=== PATIENT | male | born 1965 | race Two or more races ===

== ENCOUNTER 2016-12-26 23:13 | Inpatient (IN) | payer MEDICARE ==
[~2016-12-26] VITALS: Ht 165.1 cm; Wt 70.3 kg
[2016-12-27 00:08] LABS: BILIRUBIN,URINE NEGATIVE (NEG); GLUCOSE,URINE >=1000 mg/dL (NEG); NITRITE,URINE POSITIVE (NEG); PROTEIN,URINE NEGATIVE (NEG-TRACE); UROBILINOGEN,URINE 0.2 mg/dL (0.2 mg/dL)
[2016-12-27 00:14] LABS: BACTERIA,URINE MANY /HPF (0-FEW); RBC,URINE TNTC /HPF (0-2); WBC,URINE TNTC /HPF (0-4)
[2016-12-27] MEDS ORDERED: IV NORMAL SALINE 1000ML BAG 1,000 ML IV SCH (02:00)
[2016-12-27] MEDS ORDERED: IV NORMAL SALINE 1000ML BAG 1,000 ML IV ONE (02:00)
[2016-12-27 02:16] LABS: BASO # 0.1 x10^3/uL (0.0-0.2); BASO % 1 % (0-3); EOS % 0 % (0-3); HEMATOCRIT 44.9 % (39.0-53.0); LYMPH # 1.3 x10^3/uL (1.0-4.8); LYMPH % 8 % (24-48); MEAN CORPUSCULAR HEMOGLOBIN 28 pg (25-35); MEAN CORPUSCULAR HGB CONC 33 g/dL (31-37); MEAN CORPUSCULAR VOLUME 85 fL (79-100); MONO % 4 % (0-9); NEUT % 87 % (31-73); PLATELET COUNT 346 x10^3/uL (140-400); RED BLOOD COUNT 5.29 x10^6/uL (4.30-5.70); RED CELL DISTRIBUTION WIDTH 13.2 % (11.5-14.5); WHITE BLOOD COUNT 16.1 x10^3/uL (4.0-11.0)
[2016-12-27 02:24] LABS: CALCIUM 8.9 mg/dL (8.5-10.1); CREATININE 0.9 mg/dL (0.7-1.3); GFR 88.3
[2016-12-27] MEDS ORDERED: IV NORMAL SALINE 1000ML BAG 500 ML IV ONE (02:30)
[2016-12-27] MEDS ORDERED: ONDANSETRON PF 4 MG/2 ML VIAL. IV PRN (02:30)
[2016-12-27 02:49] LABS: PLT ESTIMATE ADEQUATE (ADEQUATE)
[2016-12-27 03:30] VITALS: BP 156/89
[2016-12-27] MEDS: MORPHINE SULFATE 4 MG/ML DISP.SYRIN. IV PRN ×2 (03:48→17:13)
--- NOTE | 2016-12-27 04:11 | PHYS DOC ---
Past Medical History Past Medical History: Bipolar, Diabetes-Type II Past Surgical History: No Surgical History Additional Information: 1.5 PPD Alcohol Use: Heavy Drug Use: None Adult General Chief Complaint Chief Complaint: PAIN ON URINATION HPI HPI Patient is a 51 year old [f__sex] who presents with [] Review of Systems Review of Systems Constitutional: Denies fever or chills [] Eyes: Denies change in visual acuity, redness, or eye pain [] HENT: Denies nasal congestion or sore throat [] Respiratory: Denies cough or shortness of breath [] Cardiovascular: No additional information not addressed in HPI [] GI: Denies abdominal pain, nausea, vomiting, bloody stools or diarrhea [] : Denies dysuria or hematuria [] Musculoskeletal: Denies back pain or joint pain [] Integument: Denies rash or skin lesions [] Neurologic: Denies headache, focal weakness or sensory changes [] Endocrine: Denies polyuria or polydipsia [] All other systems were reviewed and found to be within normal limits, except as documented in this note. Current Medications Current Medications Current Medications Medications (Trade) Dose Ordered Sig/Heidi Start Time Stop Time Status Last Admin Dose Admin Ceftriaxone Sodium 50 ml @ 100 mls/hr 1X ONCE 12/27/16 02:15 12/27/16 02:45 DC 12/27/16 02:24 100 MLS/HR Sodium Chloride 1,000 ml @ 999 mls/hr 1X ONCE 12/27/16 02:00 12/27/16 03:00 DC 12/27/16 03:43 999 MLS/HR Allergies Allergies Allergies Coded Allergies Type Severity Reaction Last Updated Verified No Known Drug Allergies 12/26/16 No Physical Exam Physical Exam Constitutional: Well developed, well nourished, no acute distress, non-toxic appearance. [] HENT: Normocephalic, atraumatic, bilateral external ears normal, oropharynx moist, no oral exudates, nose normal. [] Eyes: PERRLA, EOMI, conjunctiva normal, no discharge. [] Neck: Normal range of motion, no tenderness, supple, no stridor. [] Cardiovascular:Heart rate regular rhythm, no murmur [] Lungs & Thorax: Bilateral breath sounds clear to auscultation [] Abdomen: Bowel sounds normal, soft, no tenderness, no masses, no pulsatile masses. [] Skin: Warm, dry, no erythema, no rash. [] Back: No tenderness, no CVA tenderness. [] Extremities: No tenderness, no cyanosis, no clubbing, ROM intact, no edema. [] Neurologic: Alert and oriented X 3, normal motor function, normal sensory function, no focal deficits noted. [] Psychologic: Affect normal, judgement normal, mood normal. [] Current Patient Data Vital Signs Vital Signs Date Time Temp Pulse Resp B/P (MAP) Pulse Ox O2 Delivery O2 Flow Rate FiO2 12/27/16 02:06 95 18 114/73 (87) 95 Room Air 12/26/16 23:42 98.3 98.3 Lab Values Laboratory Tests Test 12/26/16 23:37 12/27/16 02:04 Urine Collection Type Unknown Urine Color Yellow Urine Clarity Cloudy Urine pH 6.0 Urine Specific [place] >=1.030 Urine Protein Negative mg/dL (NEG-TRACE) Urine Glucose (UA) >=1000 mg/dL (NEG) Urine Ketones (Stick) Negative mg/dL (NEG) Urine Blood Large (NEG) Urine Nitrite Positive (NEG) Urine Bilirubin Negative (NEG) Urine Urobilinogen Dipstick 0.2 mg/dL (0.2 mg/dL) Urine Leukocyte Esterase Moderate (NEG) Urine RBC Tntc /HPF (0-2) Urine WBC Tntc /HPF (0-4) Urine Squamous Epithelial Cells None /LPF Urine Bacteria Many /HPF (0-FEW) White Blood Count 16.1 x10^3/uL (4.0-11.0) H Red Blood Count 5.29 x10^6/uL (4.30-5.70) Hemoglobin 15.0 g/dL (13.0-17.5) Hematocrit 44.9 % (39.0-53.0) Mean Corpuscular Volume 85 fL (79-100) Mean Corpuscular Hemoglobin 28 pg (25-35) Mean Corpuscular Hemoglobin Concent 33 g/dL (31-37) Red Cell Distribution Width 13.2 % (11.5-14.5) Platelet Count 346 x10^3/uL (140-400) Neutrophils (%) (Auto) 87 % (31-73) H Lymphocytes (%) (Auto) 8 % (24-48) L Monocytes (%) (Auto) 4 % (0-9) Eosinophils (%) (Auto) 0 % (0-3) Basophils (%) (Auto) 1 % (0-3) Neutrophils # (Auto) 14.0 x10^3uL (1.8-7.7) H Lymphocytes # (Auto) 1.3 x10^3/uL (1.0-4.8) Monocytes # (Auto) 0.6 x10^3/uL (0.0-1.1) Eosinophils # (Auto) 0.0 x10^3/uL (0.0-0.7) Basophils # (Auto) 0.1 x10^3/uL (0.0-0.2) Segmented Neutrophils % 86 % (35-66) H Lymphocytes % 11 % (24-48) L Monocytes % 3 % (0-10) Platelet Estimate Adequate (ADEQUATE) Sodium Level 133 mmol/L (136-145) L Potassium Level 4.0 mmol/L (3.5-5.1) Chloride Level 95 mmol/L (98-107) L Carbon Dioxide Level 29 mmol/L (21-32) Anion Gap 9 (6-14) Blood Urea Nitrogen 12 mg/dL (8-26) Creatinine 0.9 mg/dL (0.7-1.3) Estimated GFR (Cockcroft-Gault) 88.3 Glucose Level 373 mg/dL (70-99) H Lactic Acid Level 1.3 mmol/L (0.4-2.0) Calcium Level 8.9 mg/dL (8.5-10.1) Laboratory Tests 12/27/16 02:04 Laboratory Tests 12/27/16 02:04 EKG EKG [] Radiology/Procedures Radiology/Procedures [] Course & Med Decision Making Course & Med Decision Making Pertinent Labs and Imaging studies reviewed. (See chart for details) [] Dragon Disclaimer Dragon Disclaimer This electronic medical record was generated, in whole or in part, using a voice recognition dictation system. Departure Departure Impression: Primary Impression: Urinary tract infection Additional Impressions: Urinary retention Systemic inflammatory response syndrome (SIRS) Sepsis Disposition: 09 ADMITTED INPATIENT Admitting Physician: Other (Reusch) Condition: STABLE Referrals: RICCARDO GOODWIN MD (PCP) Problem Qualifiers PAUL MIRZA MD Dec 27, 2016 04:11
[2016-12-27] MEDS: IV NORMAL SALINE 1000ML BAG 1,000 ML IV SCH ×4 (05:18→20:37)
[2016-12-27 07:00] VITALS: BP 133/77
[2016-12-27] MEDS ORDERED: DEXTROSE 50% 25 GM / 50ML DISP.SYRIN. IV PRN ×2 (08:45→11:45)
[2016-12-27] MEDS: ACETAMINOPHEN 325 MG TABLET. PO PRN (09:00)
[2016-12-27 10:47] VITALS: BP 97/54
[2016-12-27 11:22] LABS: BARBITURATES NEG (NEG); BENZODIAZEPINES NEG (NEG); CANNABINOIDS NEG (NEG); COCAINE NEG (NEG); METHADONE NEG (NEG); OPIATES POS (NEG); PHENCYCLIDINE NEG (NEG)
--- NOTE | 2016-12-27 11:59 | HP ---
ADMIT DATE: 12/27/2016 CHIEF COMPLAINT: Dysuria. HISTORY OF PRESENT ILLNESS: The patient is a 51-year-old gentleman with diabetes and bipolar disorder as well as multi-substance abuse who presented to the hospital with generalized weakness, dysuria, which had been going on for a couple of days. Has noticed fevers. Denies any shortness of breath or chest pain. In the Emergency Room, he was found with UTI and therefore admitted with IV antibiotics. PAST MEDICAL HISTORY: Diabetes, hypertension, multisubstance abuse. SOCIAL HISTORY: Lives with his family, uses meth, tobacco and heavy alcohol. ALLERGIES: No known drug allergies. MEDICATIONS: MAR reconciled with home medications. REVIEW OF SYSTEMS: Positive as per HPI. He feels already better since receiving antibiotics and IV fluids. PHYSICAL EXAMINATION: VITAL SIGNS: From today show a blood pressure of 133/77, heart rate of 106, temperature of 101.3. GENERAL: This is an unkempt 51-year-old gentleman, resting in bed, waking easily to verbal input. HEENT: Shows no scleral icterus. Oral mucosa is pink and moist. Dentition is poor. NECK: Supple. LUNGS: Clear. HEART: Regular rate and rhythm. ABDOMEN: Has positive bowel sounds, soft, nontender. EXTREMITIES: Show no edema. SKIN: Warm, soft and dry. Multiple tattoos. LABORATORY DATA: CBC with a WBC of 16.1, hemoglobin 15, platelets of 346. Chemistries with a BUN and creatinine of 9 and 12, sodium at 133, glucose at 373. Tox screen positive for opiates (obtained after several hours in hospital). Urine shows TNTC wbc and rbc as well as many bacteria. IMAGING STUDIES: Not obtained. ASSESSMENT AND PLAN: The patient is a 51-year-old gentleman presenting with septic symptoms secondary to UTI. He will be admitted. IV antibiotics have been started with ceftriaxone. We will continue IV fluids given his tachycardia. Monitor his vital signs. The patient is also diabetic. He is unable to provide a medication list. We will start him on insulin sliding scale for the time being. Hopefully, his family will be able to let us know his home medications, although I have a suspicion that he is not taking anything regularly. Blood pressures currently are soft, although have been higher at time of admission. We will monitor. IV fluids will be administered. NYA CAMILO MD DR: JERMAN/nts JOB#: [id number] / [id number] RICCARDO Ocampo MD MTDD
[2016-12-27] MEDS ORDERED: INSULIN ASPART 300 UNITS/3 ML INSULN.PEN SQ ONE (12:00)
[2016-12-27] MEDS ORDERED: INSULIN ASPART 300 UNITS/3 ML INSULN.PEN SQ SCH (12:00)
[2016-12-27] MEDS: INSULIN ASPART 300 UNITS/3 ML INSULN.PEN SQ SCH ×2 (12:00→17:19)
[2016-12-27 14:52] VITALS: BP 111/64
[2016-12-27 19:00] VITALS: BP 108/64
[2016-12-27] MEDS: cefTRIAXone IV Push 1 GM VIAL. IVP SCH (20:37)
[2016-12-27 23:00] VITALS: BP 138/84
[2016-12-28 03:00] VITALS: BP 119/73
[2016-12-28 05:03] LABS: BASO # 0.1 x10^3/uL (0.0-0.2); BASO % 1 % (0-3); EOS % 1 % (0-3); HEMATOCRIT 39.5 % (39.0-53.0); HEMOGLOBIN 13.3 g/dL (13.0-17.5); LYMPH # 2.6 x10^3/uL (1.0-4.8); LYMPH % 16 % (24-48); MEAN CORPUSCULAR HEMOGLOBIN 29 pg (25-35); MEAN CORPUSCULAR HGB CONC 34 g/dL (31-37); MEAN CORPUSCULAR VOLUME 85 fL (79-100); MONO % 9 % (0-9); NEUT % 74 % (31-73); PLATELET COUNT 315 x10^3/uL (140-400); RED BLOOD COUNT 4.65 x10^6/uL (4.30-5.70); RED CELL DISTRIBUTION WIDTH 13.2 % (11.5-14.5)
[2016-12-28 06:15] LABS: ALBUMIN 2.4 g/dL (3.4-5.0); ALBUMIN/GLOBULIN RATIO 0.5 (1.0-1.7); CALCIUM 8.4 mg/dL (8.5-10.1); CREATININE 0.8 mg/dL (0.7-1.3); GFR 101.1; POTASSIUM 3.4 mmol/L (3.5-5.1); TOTAL BILIRUBIN 0.2 mg/dL (0.2-1.0); TOTAL PROTEIN 7.3 g/dL (6.4-8.2)
[2016-12-28 07:00] VITALS: BP 129/75
[2016-12-28] MEDS: INSULIN ASPART 300 UNITS/3 ML INSULN.PEN SQ SCH ×3 (08:13→17:32)
[2016-12-28] MEDS: ACETAMINOPHEN 325 MG TABLET. PO PRN ×2 (10:30→17:28)
[2016-12-28 11:15] VITALS: BP 117/74
--- NOTE | 2016-12-28 14:37 | PDOC ---
PROGRESS NOTES Chief Complaint Chief Complaint Urosepsis ASSESSMENT AND PLAN: 1. UTI: prelim cult with >100K CFU GNR. cont empiric ceftriax 2. Sepsis: low grade temp, tachycardia , but improved since yesterday. 3. DM2: noncompliant with meds, has not had anything for months. poorly controlled here. add levemir, cont ISS. used to use Novolin N and R 4. HTN: currently well controlled off meds - ? relative hypotension. monitor History of Present Illness History of Present Illness feels better, no focal pain Vitals Vitals Vital Signs Date Time Temp Pulse Resp B/P (MAP) Pulse Ox O2 Delivery O2 Flow Rate FiO2 12/28/16 11:15 99.7 83 18 117/74 (88) 93 Room Air 99.7 Physical Exam General: Alert, Oriented X3, Cooperative, No acute distress Heart: Regular rate Lungs: Clear Abdomen: Normal bowel sounds, Soft, No tenderness Extremities: No edema Skin: No rashes Labs LABS Laboratory Tests Test 12/27/16 16:14 12/28/16 04:40 12/28/16 07:27 12/28/16 11:30 Glucose (Fingerstick) 384 mg/dL (70-99) 350 mg/dL (70-99) 372 mg/dL (70-99) White Blood Count 17.0 x10^3/uL (4.0-11.0) Red Blood Count 4.65 x10^6/uL (4.30-5.70) Hemoglobin 13.3 g/dL (13.0-17.5) Hematocrit 39.5 % (39.0-53.0) Mean Corpuscular Volume 85 fL (79-100) Mean Corpuscular Hemoglobin 29 pg (25-35) Mean Corpuscular Hemoglobin Concent 34 g/dL (31-37) Red Cell Distribution Width 13.2 % (11.5-14.5) Platelet Count 315 x10^3/uL (140-400) Neutrophils (%) (Auto) 74 % (31-73) Lymphocytes (%) (Auto) 16 % (24-48) Monocytes (%) (Auto) 9 % (0-9) Eosinophils (%) (Auto) 1 % (0-3) Basophils (%) (Auto) 1 % (0-3) Neutrophils # (Auto) 12.6 x10^3uL (1.8-7.7) Lymphocytes # (Auto) 2.6 x10^3/uL (1.0-4.8) Monocytes # (Auto) 1.5 x10^3/uL (0.0-1.1) Eosinophils # (Auto) 0.1 x10^3/uL (0.0-0.7) Basophils # (Auto) 0.1 x10^3/uL (0.0-0.2) Sodium Level 134 mmol/L (136-145) Potassium Level 3.4 mmol/L (3.5-5.1) Chloride Level 98 mmol/L (98-107) Carbon Dioxide Level 29 mmol/L (21-32) Anion Gap 7 (6-14) Blood Urea Nitrogen 12 mg/dL (8-26) Creatinine 0.8 mg/dL (0.7-1.3) Estimated GFR (Cockcroft-Gault) 101.1 BUN/Creatinine Ratio 15 (6-20) Glucose Level 364 mg/dL (70-99) Hemoglobin A1c 11.7 % (4.8-5.6) Calcium Level 8.4 mg/dL (8.5-10.1) Total Bilirubin 0.2 mg/dL (0.2-1.0) Aspartate Amino Transf (AST/SGOT) 12 U/L (15-37) Alanine Aminotransferase (ALT/SGPT) 12 U/L (16-63) Alkaline Phosphatase 145 U/L (46-116) Total Protein 7.3 g/dL (6.4-8.2) Albumin 2.4 g/dL (3.4-5.0) Albumin/Globulin Ratio 0.5 (1.0-1.7) NYA CAMILO MD Dec 28, 2016 14:37
[2016-12-28 14:59] VITALS: BP 121/75
[2016-12-28] MEDS: INSULIN DETEMIR 300 UNITS/3 ML INSULN.PEN. SQ SCH (15:22)
[2016-12-28] MEDS ORDERED: LACTULOSE 20 GM/30 ML SOLUTION. PO ONE ×2 (15:30→15:45)
[2016-12-28 19:24] VITALS: BP 99/55
[2016-12-28] MEDS ORDERED: INSULIN ASPART 300 UNITS/3 ML INSULN.PEN SQ ONE (21:00)
[2016-12-28] MEDS: cefTRIAXone IV Push 1 GM VIAL. IVP SCH (21:43)
[2016-12-28 23:37] VITALS: BP 112/60
[2016-12-29 03:55] VITALS: BP 137/67
[2016-12-29 07:08] VITALS: BP 102/58
[2016-12-29] MEDS: INSULIN ASPART 300 UNITS/3 ML INSULN.PEN SQ SCH ×4 (08:29→17:00)
[2016-12-29] MEDS: INSULIN DETEMIR 300 UNITS/3 ML INSULN.PEN. SQ SCH ×2 (08:30→20:32)
[2016-12-29 10:31] VITALS: BP 112/75
[2016-12-29 14:39] VITALS: BP 135/81
[2016-12-29] MEDS ORDERED: INSULIN ASPART 300 UNITS/3 ML INSULN.PEN SQ ONE (16:30)
--- NOTE | 2016-12-29 16:44 | PDOC ---
PROGRESS NOTES Chief Complaint Chief Complaint Urosepsis ASSESSMENT AND PLAN: 1. UTI: E.coli sensitive to ceftriax and cipro. cont on ceftriax for now; can switch to PO cipro at D/C to complete 1 week of Abx 2. Sepsis: resolved 3. DM2: noncompliant with meds, has not had anything for months. poorly controlled here. added levemir, dose needs to be increased. customized ISS. used to use Novolin N and R 4. HTN: currently well controlled off meds - ? relative hypotension. monitor 5. Dispo: home when BG better controlled, poss in AM History of Present Illness History of Present Illness feels better, no focal pain Vitals Vitals Vital Signs Date Time Temp Pulse Resp B/P (MAP) Pulse Ox O2 Delivery O2 Flow Rate FiO2 12/29/16 14:39 98.9 92 18 135/81 (99) 95 Room Air 98.9 Physical Exam General: Alert, Oriented X3, Cooperative, No acute distress Heart: Regular rate Lungs: Clear Abdomen: Normal bowel sounds, Soft, No tenderness Extremities: No edema Skin: No rashes Labs LABS Laboratory Tests Test 12/28/16 17:14 12/28/16 19:44 12/29/16 07:08 12/29/16 11:38 Glucose (Fingerstick) 357 mg/dL (70-99) 346 mg/dL (70-99) 248 mg/dL (70-99) 305 mg/dL (70-99) Test 12/29/16 16:15 Glucose (Fingerstick) 370 mg/dL (70-99) NYA CAMILO MD Dec 29, 2016 16:44
[2016-12-29] MEDS: POLYETHYLENE GLYCOL 3350 17 GM PACKET. PO SCH (16:52)
[2016-12-29 19:00] VITALS: BP 107/73
[2016-12-29] MEDS: LACTOBACILLUS RHAMNOSUS GG 1 CAPSULE. PO SCH (20:28)
[2016-12-29] MEDS: CEFPODOXIME PROXETIL 100 MG TABLET. PO SCH (20:28)
[2016-12-29 23:05] VITALS: BP 97/63
[2016-12-30 03:10] VITALS: BP 109/74
[2016-12-30 04:21] LABS: HEMATOCRIT 37.8 % (39.0-53.0); HEMOGLOBIN 12.7 g/dL (13.0-17.5); RED BLOOD COUNT 4.42 x10^6/uL (4.30-5.70); WHITE BLOOD COUNT 10.2 x10^3/uL (4.0-11.0)
[2016-12-30 04:50] LABS: CALCIUM 8.5 mg/dL (8.5-10.1); CREATININE 0.6 mg/dL (0.7-1.3); GFR 140.9; POTASSIUM 3.9 mmol/L (3.5-5.1)
[2016-12-30 07:00] VITALS: BP 92/57
[2016-12-30] MEDS ORDERED: INSULIN DETEMIR 300 UNITS/3 ML INSULN.PEN. SQ SCH (08:00)
[2016-12-30] MEDS: ACETAMINOPHEN 325 MG TABLET. PO PRN (09:05)
[2016-12-30] MEDS: POLYETHYLENE GLYCOL 3350 17 GM PACKET. PO SCH (09:05)
[2016-12-30] MEDS: LACTOBACILLUS RHAMNOSUS GG 1 CAPSULE. PO SCH ×2 (09:05→20:57)
[2016-12-30] MEDS: CEFPODOXIME PROXETIL 100 MG TABLET. PO SCH ×2 (09:06→20:57)
[2016-12-30] MEDS: INSULIN ASPART 300 UNITS/3 ML INSULN.PEN SQ SCH ×3 (09:13→17:00)
[2016-12-30 11:00] VITALS: BP 110/60
[2016-12-30 15:00] VITALS: BP 119/78
--- NOTE | 2016-12-30 15:53 | PDOC ---
PROGRESS NOTES Chief Complaint Chief Complaint Urosepsis ASSESSMENT AND PLAN: 1. UTI: E.coli sensitive to ceftriax and cipro. cont on ceftriax for now; can switch to PO cipro at D/C to complete 1 week of Abx 2. Sepsis: SEC UTI 3. DM2: noncompliant with meds, has not had anything for months. poorly controlled here. added levemir, dose needs to be increased. customized ISS. used to use Novolin N and R 4. HTN: currently well controlled off meds - ? relative hypotension. monitor 5. Dispo: home when BG better controlled, poss in AM 6. OBSTIPATION, MOM 30CC NOW PO History of Present Illness History of Present Illness feels better, no focal pain Vitals Vitals Vital Signs Date Time Temp Pulse Resp B/P (MAP) Pulse Ox O2 Delivery O2 Flow Rate FiO2 12/30/16 15:00 98.0 82 18 119/78 (92) 95 Room Air 98.0 Physical Exam General: Alert, Oriented X3, Cooperative, No acute distress Heart: Regular rate Lungs: Clear Abdomen: Normal bowel sounds, Soft, No tenderness Extremities: No edema Skin: No rashes Labs LABS Laboratory Tests Test 12/29/16 16:15 12/29/16 20:27 12/30/16 03:40 12/30/16 07:16 Glucose (Fingerstick) 370 mg/dL (70-99) 272 mg/dL (70-99) 281 mg/dL (70-99) White Blood Count 10.2 x10^3/uL (4.0-11.0) Red Blood Count 4.42 x10^6/uL (4.30-5.70) Hemoglobin 12.7 g/dL (13.0-17.5) Hematocrit 37.8 % (39.0-53.0) Mean Corpuscular Volume 86 fL (79-100) Mean Corpuscular Hemoglobin 29 pg (25-35) Mean Corpuscular Hemoglobin Concent 34 g/dL (31-37) Red Cell Distribution Width 13.0 % (11.5-14.5) Platelet Count 345 x10^3/uL (140-400) Sodium Level 137 mmol/L (136-145) Potassium Level 3.9 mmol/L (3.5-5.1) Chloride Level 102 mmol/L (98-107) Carbon Dioxide Level 31 mmol/L (21-32) Anion Gap 4 (6-14) Blood Urea Nitrogen 13 mg/dL (8-26) Creatinine 0.6 mg/dL (0.7-1.3) Estimated GFR (Cockcroft-Gault) 140.9 Glucose Level 285 mg/dL (70-99) Calcium Level 8.5 mg/dL (8.5-10.1) Test 12/30/16 10:51 Glucose (Fingerstick) 198 mg/dL (70-99) Assessment and Plan Assessmemt and Plan Problems Medical Problems: (1) Sepsis Status: Acute (2) Systemic inflammatory response syndrome (SIRS) Status: Acute (3) Urinary retention Status: Acute (4) Urinary tract infection Status: Acute WITH SEPSIS Urosepsis ASSESSMENT AND PLAN: 1. UTI: E.coli sensitive to ceftriax and cipro. cont on ceftriax for now; can switch to PO cipro at D/C to complete 1 week of Abx 2. Sepsis: resolved 3. DM2: noncompliant with meds, has not had anything for months. poorly controlled here. added levemir, dose needs to be increased. customized ISS. used to use Novolin N and R 4. HTN: currently well controlled off meds - ? relative hypotension. monitor 5. Dispo: home when BG better controlled, poss in AM History of Present Illness History of Present Illness feels better, no focal pain Vitals Vitals Vital Signs Date Time Temp Pulse Resp B/P (MAP) Pulse Ox O2 Delivery O2 Flow Rate FiO2 12/29/16 14:39 98.9 92 18 135/81 (99) 95 Room Air 98.9 Physical Exam General: Alert, Oriented X3, Cooperative, No acute distress Heart: Regular rate Lungs: Clear Abdomen: Normal bowel sounds, Soft, No tenderness Extremities: No edema Skin: No rashes Labs Problems: Comment Review of Relevant I have reviewed the following items margie (where applicable) has been applied. Labs Laboratory Tests Test 12/28/16 17:14 12/28/16 19:44 12/29/16 07:08 12/29/16 11:38 Glucose (Fingerstick) 357 mg/dL (70-99) 346 mg/dL (70-99) 248 mg/dL (70-99) 305 mg/dL (70-99) Test 12/29/16 16:15 12/29/16 20:27 12/30/16 03:40 12/30/16 07:16 Glucose (Fingerstick) 370 mg/dL (70-99) 272 mg/dL (70-99) 281 mg/dL (70-99) White Blood Count 10.2 x10^3/uL (4.0-11.0) Red Blood Count 4.42 x10^6/uL (4.30-5.70) Hemoglobin 12.7 g/dL (13.0-17.5) Hematocrit 37.8 % (39.0-53.0) Mean Corpuscular Volume 86 fL (79-100) Mean Corpuscular Hemoglobin 29 pg (25-35) Mean Corpuscular Hemoglobin Concent 34 g/dL (31-37) Red Cell Distribution Width 13.0 % (11.5-14.5) Platelet Count 345 x10^3/uL (140-400) Sodium Level 137 mmol/L (136-145) Potassium Level 3.9 mmol/L (3.5-5.1) Chloride Level 102 mmol/L (98-107) Carbon Dioxide Level 31 mmol/L (21-32) Anion Gap 4 (6-14) Blood Urea Nitrogen 13 mg/dL (8-26) Creatinine 0.6 mg/dL (0.7-1.3) Estimated GFR (Cockcroft-Gault) 140.9 Glucose Level 285 mg/dL (70-99) Calcium Level 8.5 mg/dL (8.5-10.1) Test 12/30/16 10:51 Glucose (Fingerstick) 198 mg/dL (70-99) Laboratory Tests Test 12/29/16 16:15 12/29/16 20:27 12/30/16 03:40 12/30/16 07:16 Glucose (Fingerstick) 370 mg/dL (70-99) 272 mg/dL (70-99) 281 mg/dL (70-99) White Blood Count 10.2 x10^3/uL (4.0-11.0) Red Blood Count 4.42 x10^6/uL (4.30-5.70) Hemoglobin 12.7 g/dL (13.0-17.5) Hematocrit 37.8 % (39.0-53.0) Mean Corpuscular Volume 86 fL (79-100) Mean Corpuscular Hemoglobin 29 pg (25-35) Mean Corpuscular Hemoglobin Concent 34 g/dL (31-37) Red Cell Distribution Width 13.0 % (11.5-14.5) Platelet Count 345 x10^3/uL (140-400) Sodium Level 137 mmol/L (136-145) Potassium Level 3.9 mmol/L (3.5-5.1) Chloride Level 102 mmol/L (98-107) Carbon Dioxide Level 31 mmol/L (21-32) Anion Gap 4 (6-14) Blood Urea Nitrogen 13 mg/dL (8-26) Creatinine 0.6 mg/dL (0.7-1.3) Estimated GFR (Cockcroft-Gault) 140.9 Glucose Level 285 mg/dL (70-99) Calcium Level 8.5 mg/dL (8.5-10.1) Test 12/30/16 10:51 Glucose (Fingerstick) 198 mg/dL (70-99) Microbiology 12/27/16 Blood Culture - Preliminary, Resulted NO GROWTH AFTER 3 DAYS 12/26/16 Urine Culture - Final, Complete 12/26/16 Urine Culture Result 1 (DUDLEY) - Final, Complete 12/26/16 Antimicrobic Susceptibility - Final, Complete Medications Current Medications Sodium Chloride 1,000 ml @ 999 mls/hr Q1H1M IV Last administered on 02:24; Start 12/27/16 at 02:00; Stop 12/27/16 at 04:12; Status DC Ceftriaxone Sodium 50 ml @ 100 mls/hr 1X ONCE IV Last administered on 02:24; Start 12/27/16 at 02:15; Stop 12/27/16 at 02:45; Status DC Sodium Chloride 1,000 ml @ 999 mls/hr 1X ONCE IV Last administered on 03:43; Start 12/27/16 at 02:00; Stop 12/27/16 at 03:00; Status DC Ondansetron HCl (Zofran) 4 mg PRN Q8HRS PRN IV NAUSEA/VOMITING; Start at 02:30; Stop 12/28/16 at 02:29; Status DC Morphine Sulfate 2 mg PRN Q2HR PRN IV PAIN Last administered on 12/27/16 17: 13; Start 12/27/16 at 02:30; Stop 12/28/16 at 02:29; Status DC Sodium Chloride 1,000 ml @ 150 mls/hr Q6H40M IV Last administered on 20:37; Start 12/27/16 at 02:30; Stop 12/28/16 at 02:29; Status DC Sodium Chloride 500 ml @ 999 mls/hr 1X ONCE IV Last administered on 04:45; Start 12/27/16 at 02:30; Stop 12/27/16 at 03:00; Status DC Acetaminophen (Tylenol) 650 mg PRN Q6HRS PRN PO pain or fever Last administered on 12/30/16 09:05; Start 12/27/16 at 08:45 Insulin Aspart (NovoLOG) 0-7 UNITS TIDWMEALS SQ ; Start 12/27/16 at 12:00; Stop 12/27/16 at 12:54; Status DC Dextrose (Dextrose 50%-Water Syringe) 12.5 gm PRN Q15MIN PRN IV SEE COMMENTS; Start 12/27/16 at 08:45 Insulin Aspart (NovoLOG) 0-9 UNITS TIDWMEALS SQ Last administered on 12:21; Start 12/27/16 at 12:00; Stop 12/29/16 at 16:50; Status DC Dextrose (Dextrose 50%-Water Syringe) 12.5 gm PRN Q15MIN PRN IV SEE COMMENTS; Start 12/27/16 at 11:45; Status Cancel Insulin Aspart (NovoLOG) 12 units 1X ONCE SQ Last administered on 12/27/16 12:00; Start 12/27/16 at 12:00; Stop 12/27/16 at 12:01; Status DC Ceftriaxone Sodium 1 gm/ Dextrose 50 ml @ 100 mls/hr Q24H IV ; Start 12/27/16 at 21:00; Status UNV Ceftriaxone Sodium (Rocephin) 1 gm Q24H IVP Last administered on 12/28/16 21: 43; Start 12/27/16 at 21:00; Stop 12/29/16 at 16:38; Status DC Insulin Detemir (Levemir) 15 units DAILY08 SQ Last administered on 12/29/16 08:30; Start 12/28/16 at 15:00; Stop 12/29/16 at 16:50; Status DC Lactulose 30 gm 1X ONCE PO ; Start 12/28/16 at 15:30; Stop 12/28/16 at 15:31 ; Status Cancel Lactulose 20 gm 1X ONCE PO Last administered on 12/28/16 15:16; Start 12/28 at 15:45; Stop 12/28/16 at 15:46; Status DC Insulin Aspart (NovoLOG) 9 units 1X ONCE SQ Last administered on 12/28/16 21 :53; Start 12/28/16 at 21:00; Stop 12/28/16 at 21:01; Status DC Insulin Aspart (NovoLOG) 20 units 1X ONCE SQ Last administered on 12/29/16 16:37; Start 12/29/16 at 16:30; Stop 12/29/16 at 16:31; Status DC Cefpodoxime Proxetil (Vantin) 200 mg BID PO Last administered on 12/30/16 09: 06; Start 12/29/16 at 21:00 Polyethylene Glycol (miraLAX PACKET) 17 gm DAILY PO Last administered on 09:05; Start 12/29/16 at 17:00 Insulin Aspart (NovoLOG) custom scale TIDWMEALS SQ Last administered on 13:00; Start 12/29/16 at 17:00 Insulin Detemir (Levemir) 25 units DAILY08 SQ ; Start 12/30/16 at 08:00 Insulin Detemir (Levemir) 10 units QHS SQ Last administered on 12/29/16 20:32 ; Start 12/29/16 at 21:00 Lactobacillus Rhamnosus (Culturelle) 1 cap BID PO Last administered on 09:05; Start 12/29/16 at 21:00 Active Scripts Active Reported No Known Medications Prior To Admisstion (Info) Each 1 Each Vitals/I & O Vital Sign - Last 24 Hours 12/29/16 12/29/16 12/29/16 12/30/16 19:00 20:00 23:05 03:10 Temp 98.5 99.2 98.2 98.5 99.2 98.2 Pulse 84 84 81 Resp 18 18 18 B/P (MAP) 107/73 (84) 97/63 (74) 109/74 (86) Pulse Ox 97 95 95 O2 Delivery Room Air Room Air Room Air Room Air 12/30/16 12/30/16 12/30/16 12/30/16 07:00 08:00 11:00 15:00 Temp 98.1 98.4 98.0 98.1 98.4 98.0 Pulse 84 86 82 Resp 18 B/P (MAP) 92/57 (69) 110/60 (77) 119/78 (92) Pulse Ox 95 94 95 O2 Delivery Room Air Room Air Room Air Room Air Intake and Output 12/29/16 12/29/16 12/30/16 14:59 22:59 06:59 Intake Total 1400 ml 900 ml Balance 1400 ml 900 ml RODNEY BAKER MD Dec 30, 2016 15:52
[2016-12-30] MEDS ORDERED: MAGNESIUM HYDROXIDE 2,400 MG/30 ML ORAL.SUSP. PO PRN (16:15)
[2016-12-30 19:10] VITALS: BP 103/70
[2016-12-30] MEDS: INSULIN DETEMIR 300 UNITS/3 ML INSULN.PEN. SQ SCH (21:12)
[2016-12-30 23:10] VITALS: BP 136/92
[2016-12-31 03:10] VITALS: BP 116/74
[2016-12-31 07:00] VITALS: BP 133/85
[2016-12-31] MEDS: POLYETHYLENE GLYCOL 3350 17 GM PACKET. PO SCH (08:41)
[2016-12-31] MEDS: CEFPODOXIME PROXETIL 100 MG TABLET. PO SCH (08:41)
[2016-12-31] MEDS: LACTOBACILLUS RHAMNOSUS GG 1 CAPSULE. PO SCH (08:41)
[2016-12-31] MEDS: INSULIN ASPART 300 UNITS/3 ML INSULN.PEN SQ SCH ×2 (08:49→12:00)
[2016-12-31] MEDS ORDERED: INSULIN ASPART 300 UNITS/3 ML INSULN.PEN SQ ONE (09:00)
--- NOTE | 2016-12-31 09:40 | PDOC ---
PROGRESS NOTES Chief Complaint Chief Complaint Urosepsis DISCHARGE DIAGNOSIS AND PLAN: 1. UTI: E.coli sensitive to ceftriax and cipro. switch to PO cipro at D/C to complete 1 week of Abx 2. Sepsis: SEC UTI 3. DM2: noncompliant with meds, has not had anything for months. poorly controlled here. added levemir, dose needs to be increased BY PCP. 4. HTN: currently well controlled off meds - 5. Dispo: home 6. OBSTIPATION, MOM 30CC PRN History of Present Illness History of Present Illness feels better, no focal pain Vitals Vitals Vital Signs Date Time Temp Pulse Resp B/P (MAP) Pulse Ox O2 Delivery O2 Flow Rate FiO2 12/31/16 07:00 97.2 85 20 133/85 (101) 98 Room Air 97.2 Physical Exam General: Alert, Oriented X3, Cooperative, No acute distress Heart: Regular rate Lungs: Clear Abdomen: Normal bowel sounds, Soft, No tenderness Extremities: No cyanosis, No edema Skin: No rashes Labs LABS Laboratory Tests Test 12/30/16 10:51 12/30/16 16:20 12/30/16 20:48 12/31/16 07:19 Glucose (Fingerstick) 198 mg/dL (70-99) 149 mg/dL (70-99) 408 mg/dL (70-99) 337 mg/dL (70-99) Assessment and Plan Assessmemt and Plan Problems Medical Problems: (1) Sepsis Status: Acute (2) Systemic inflammatory response syndrome (SIRS) Status: Acute (3) Urinary retention Status: Acute (4) Urinary tract infection Status: Acute Problems: Comment Review of Relevant I have reviewed the following items margie (where applicable) has been applied. Labs Laboratory Tests Test 12/29/16 11:38 12/29/16 16:15 12/29/16 20:27 12/30/16 03:40 Glucose (Fingerstick) 305 mg/dL (70-99) 370 mg/dL (70-99) 272 mg/dL (70-99) White Blood Count 10.2 x10^3/uL (4.0-11.0) Red Blood Count 4.42 x10^6/uL (4.30-5.70) Hemoglobin 12.7 g/dL (13.0-17.5) Hematocrit 37.8 % (39.0-53.0) Mean Corpuscular Volume 86 fL (79-100) Mean Corpuscular Hemoglobin 29 pg (25-35) Mean Corpuscular Hemoglobin Concent 34 g/dL (31-37) Red Cell Distribution Width 13.0 % (11.5-14.5) Platelet Count 345 x10^3/uL (140-400) Sodium Level 137 mmol/L (136-145) Potassium Level 3.9 mmol/L (3.5-5.1) Chloride Level 102 mmol/L (98-107) Carbon Dioxide Level 31 mmol/L (21-32) Anion Gap 4 (6-14) Blood Urea Nitrogen 13 mg/dL (8-26) Creatinine 0.6 mg/dL (0.7-1.3) Estimated GFR (Cockcroft-Gault) 140.9 Glucose Level 285 mg/dL (70-99) Calcium Level 8.5 mg/dL (8.5-10.1) Test 12/30/16 07:16 12/30/16 10:51 12/30/16 16:20 12/30/16 20:48 Glucose (Fingerstick) 281 mg/dL (70-99) 198 mg/dL (70-99) 149 mg/dL (70-99) 408 mg/dL (70-99) Test 12/31/16 07:19 Glucose (Fingerstick) 337 mg/dL (70-99) Laboratory Tests Test 12/30/16 10:51 12/30/16 16:20 12/30/16 20:48 12/31/16 07:19 Glucose (Fingerstick) 198 mg/dL (70-99) 149 mg/dL (70-99) 408 mg/dL (70-99) 337 mg/dL (70-99) Microbiology 12/27/16 Blood Culture - Preliminary, Resulted NO GROWTH AFTER 4 DAYS 12/26/16 Urine Culture - Final, Complete 12/26/16 Urine Culture Result 1 ([facility]) - Final, Complete 12/26/16 Antimicrobic Susceptibility - Final, Complete Medications Current Medications Sodium Chloride 1,000 ml @ 999 mls/hr Q1H1M IV Last administered on t 02:24; Start 12/27/16 at 02:00; Stop 12/27/16 at 04:12; Status DC Ceftriaxone Sodium 50 ml @ 100 mls/hr 1X ONCE IV Last administered on 02:24; Start 12/27/16 at 02:15; Stop 12/27/16 at 02:45; Status DC Sodium Chloride 1,000 ml @ 999 mls/hr 1X ONCE IV Last administered on 03:43; Start 12/27/16 at 02:00; Stop 12/27/16 at 03:00; Status DC Ondansetron HCl (Zofran) 4 mg PRN Q8HRS PRN IV NAUSEA/VOMITING; Start at 02:30; Stop 12/28/16 at 02:29; Status DC Morphine Sulfate 2 mg PRN Q2HR PRN IV PAIN Last administered on 12/27/16 17: 13; Start 12/27/16 at 02:30; Stop 12/28/16 at 02:29; Status DC Sodium Chloride 1,000 ml @ 150 mls/hr Q6H40M IV Last administered on 20:37; Start 12/27/16 at 02:30; Stop 12/28/16 at 02:29; Status DC Sodium Chloride 500 ml @ 999 mls/hr 1X ONCE IV Last administered on 04:45; Start 12/27/16 at 02:30; Stop 12/27/16 at 03:00; Status DC Acetaminophen (Tylenol) 650 mg PRN Q6HRS PRN PO pain or fever Last administered on 12/30/16 09:05; Start 12/27/16 at 08:45 Insulin Aspart (NovoLOG) 0-7 UNITS TIDWMEALS SQ ; Start 12/27/16 at 12:00; Stop 12/27/16 at 12:54; Status DC Dextrose (Dextrose 50%-Water Syringe) 12.5 gm PRN Q15MIN PRN IV SEE COMMENTS; Start 12/27/16 at 08:45 Insulin Aspart (NovoLOG) 0-9 UNITS TIDWMEALS SQ Last administered on 12:21; Start 12/27/16 at 12:00; Stop 12/29/16 at 16:50; Status DC Dextrose (Dextrose 50%-Water Syringe) 12.5 gm PRN Q15MIN PRN IV SEE COMMENTS; Start 12/27/16 at 11:45; Status Cancel Insulin Aspart (NovoLOG) 12 units 1X ONCE SQ Last administered on 12/27/16 12:00; Start 12/27/16 at 12:00; Stop 12/27/16 at 12:01; Status DC Ceftriaxone Sodium 1 gm/ Dextrose 50 ml @ 100 mls/hr Q24H IV ; Start 12/27/16 at 21:00; Status UNV Ceftriaxone Sodium (Rocephin) 1 gm Q24H IVP Last administered on 12/28/16 21: 43; Start 12/27/16 at 21:00; Stop 12/29/16 at 16:38; Status DC Insulin Detemir (Levemir) 15 units DAILY08 SQ Last administered on 12/29/16 08:30; Start 12/28/16 at 15:00; Stop 12/29/16 at 16:50; Status DC Lactulose 30 gm 1X ONCE PO ; Start 12/28/16 at 15:30; Stop 12/28/16 at 15:31 ; Status Cancel Lactulose 20 gm 1X ONCE PO Last administered on 12/28/16 15:16; Start 12/28 at 15:45; Stop 12/28/16 at 15:46; Status DC Insulin Aspart (NovoLOG) 9 units 1X ONCE SQ Last administered on 12/28/16 21 :53; Start 12/28/16 at 21:00; Stop 12/28/16 at 21:01; Status DC Insulin Aspart (NovoLOG) 20 units 1X ONCE SQ Last administered on 12/29/16 16:37; Start 12/29/16 at 16:30; Stop 12/29/16 at 16:31; Status DC Cefpodoxime Proxetil (Vantin) 200 mg BID PO Last administered on 12/31/16 08: 41; Start 12/29/16 at 21:00 Polyethylene Glycol (miraLAX PACKET) 17 gm DAILY PO Last administered on 09:05; Start 12/29/16 at 17:00 Insulin Aspart (NovoLOG) custom scale TIDWMEALS SQ Last administered on 08:49; Start 12/29/16 at 17:00 Insulin Detemir (Levemir) 25 units DAILY08 SQ ; Start 12/30/16 at 08:00; Stop 12/30/16 at 16:13; Status DC Insulin Detemir (Levemir) 10 units QHS SQ Last administered on 12/30/16 21:12 ; Start 12/29/16 at 21:00 Lactobacillus Rhamnosus (Culturelle) 1 cap BID PO Last administered on 08:41; Start 12/29/16 at 21:00 Magnesium Hydroxide (Milk Of Magnesia) 2,400 mg PRN DAILY PRN PO CONSTIPATION; Start 12/30/16 at 16:15 Insulin Aspart (NovoLOG) 5 units 1X ONCE SQ Last administered on 12/31/16 08 :51; Start 12/31/16 at 09:00; Stop 12/31/16 at 09:01; Status DC Active Scripts Active Reported No Known Medications Prior To Admisstion (Info) Each 1 Each Vitals/I & O Vital Sign - Last 24 Hours 12/30/16 12/30/16 12/30/16 12/30/16 11:00 15:00 19:10 20:00 Temp 98.4 98.0 98.0 98.4 98.0 98.0 Pulse 86 82 85 Resp 18 18 18 B/P (MAP) 110/60 (77) 119/78 (92) 103/70 (81) Pulse Ox 94 95 98 O2 Delivery Room Air Room Air Room Air Room Air 12/30/16 12/31/16 12/31/16 23:10 03:10 07:00 Temp 98.5 97.5 97.2 98.5 97.5 97.2 Pulse 87 81 85 Resp 18 18 20 B/P (MAP) 136/92 (107) 116/74 (88) 133/85 (101) Pulse Ox 99 98 98 O2 Delivery Room Air Room Air Room Air Intake and Output 12/30/16 12/30/16 12/31/16 15:00 23:00 07:00 Intake Total 600 ml 700 ml Balance 600 ml 700 ml RODNEY BAKER MD Dec 31, 2016 09:40
--- NOTE | 2016-12-31 09:50 | DISCH ---
DISCHARGE INSTRUCTIONS Condition on Discharge Condition on Discharge: Stable Activity After Discharge Activity Instructions for Disc: No restrictions, Resume previous activity Lifting Instructions after Dis: No heavy lifting Exercise Instruction after Dis: Walk 10 min, 3 x per day Weight Bearing Status after Di: No restrictions Diet after Discharge Diet after Discharge: Diabetic No Calorie Level Checks after Discharge Checks after discharge: Check blood press - daily, Check blood sugar, ac/hs Contacting the DR. after DC Call your doctor for: Fever greater than 100 RODNEY BAKER MD Dec 31, 2016 09:50
[2016-12-31] MEDS ORDERED: CIPR500T94 PO (09:56)
[2016-12-31 11:00] VITALS: BP 136/77
== END 2016-12-31 12:40 | disposition home or self-care (01) | DRG 872 ==
LOC: ER 23:13 → 6 SOUTH 12-27 02:23
PROVIDERS: ADMIT Internal Medicine Hematology & Oncology; ATTEND Internal Medicine Hematology & Oncology
DX: A41.9 Sepsis, unspecified organism (principal); E44.0 Moderate protein-calorie malnutrition; N39.0 Urinary tract infection, site not specified; E11.9 Type 2 diabetes mellitus without complications; F31.9 Bipolar disorder, unspecified; F19.10 Other psychoactive substance abuse, uncomplicated; B96.20 Unspecified Escherichia coli [E. coli] as the cause of diseases classified elsewhere; I10 Essential (primary) hypertension; K59.00 Constipation, unspecified; Z91.14 Patient's other noncompliance with medication regimen
CPT/HCPCS: 36415; 51702; 80048; 80053; 80307; 81001; 82962; 83036; 83605; 85007; 85025; 85027; 87040; 87086; 87186; 96374; J0690; J0696; J1815; J2270; J7030; 99285-25; G0479